=== PATIENT | male | born 2000 | race Caucasian/White ===

== ENCOUNTER 2023-04-30 10:22 | Emergency (ER) | payer OTHER ==
[2023-04-30] MEDS ORDERED: fentaNYL 50 mcg/mL 1 mL Vial ONE (11:00)
[2023-04-30] MEDS ORDERED: Bupivacaine 0.25% 10 ML VIAL ONE (11:57)
[2023-04-30] MEDS ORDERED: Morphine 4 MG/ML VIAL ONE (11:57)
[2023-04-30] MEDS ORDERED: Ketamine In 0.9 % NaCl 50 MG/5 ML SYRINGE ONE (13:12)
== END 2023-04-30 15:23 | disposition home or self-care (01) ==
LOC: ERS 10:22
DX: S52.351A Displaced comminuted fracture of shaft of radius, right arm, initial encounter for closed fracture (principal); F17.290 Nicotine dependence, other tobacco product, uncomplicated; W05.2XXA Fall from non-moving motorized mobility scooter, initial encounter
CPT/HCPCS: 25605; 96374; 96375; J2270; J3010; J3490; S0020

== ENCOUNTER 2023-05-07 06:00 | Day surgery (SDC) | payer OTHER ==
[2023-05-06 09:27] VITALS: BMI 22.8
[2023-05-07] MEDS ORDERED: Ketorolac Tromethamine 30 MG/ML VIAL ONE (07:02)
[2023-05-07] MEDS ORDERED: Dexamethasone 20 MG/5 ML VIAL ONE (07:02)
[2023-05-07] MEDS ORDERED: Lidocaine 1% PF 5 ML VIAL ONE (07:02)
[2023-05-07] MEDS ORDERED: Ondansetron PF 4 MG/2 ML Vial ONE (07:02)
[2023-05-07] MEDS ORDERED: PROPOFOL 200 MG/20 ML VIAL ONE (07:02)
[2023-05-07] MEDS ORDERED: Midazolam HCl 2 mg/2 ml Vial ONE (07:11)
[2023-05-07] MEDS ORDERED: fentaNYL 50 mcg/mL 1 mL Vial ONE ×2 (07:11→07:55)
[2023-05-07] MEDS ORDERED: Bupivacaine HCl 0.5%/Epinephrine 1:200,000/PF 30 ml Vial ONE (07:20)
[2023-05-07] MEDS ORDERED: CEFAZOLIN 2 GM VIAL ONE (07:29)
[2023-05-07] MEDS ORDERED: Sodium Chloride 0.9% 100 ML ONE (07:29)
== END 2023-05-07 10:45 | disposition home or self-care (01) ==
LOC: SDC 06:00
PROVIDERS: ATTEND Orthopaedic Surgery
PROC: 0PSJ06Z Reposition Left Radius with Intramedullary Internal Fixation Device, Open Approach (ICD-10-PCS; principal; 2023-05-07)
DX: S52.572A Other intraarticular fracture of lower end of left radius, initial encounter for closed fracture (principal); S52.531A Colles' fracture of right radius, initial encounter for closed fracture; Z79.899 Other long term (current) drug therapy; V89.2XXA Person injured in unspecified motor-vehicle accident, traffic, initial encounter
CPT/HCPCS: C1713; J1100; J1885; J2250; J2405; J2704; J3010; J3490